=== PATIENT | male | born 1980 | race Caucasian/White ===

== ENCOUNTER 2016-07-07 14:27 | Emergency (ER) | payer OTHER ==
[~2016-07-07] VITALS: Ht 170.2 cm; Wt 72.0 kg
[~2016-07-07 14:27] MED LIST: ATOR40TA16 PO; BUPR4MIS SL; FAMO20TA2 PO; FLUT1INH7 INH; GABA300C5 PO; INSU1INJ14 SQ; LEVO25TA4 PO; NOVOINJ SQ; PROT40TA PO; ZITHTAB PO
[2016-07-07 14:34] VITALS: BP 136/96; PULSE 109; RESP 14; TEMP 98.8; O2SAT 96
[2016-07-07] MEDS ORDERED: PENI250T59 PO (14:48)
[2016-07-07] MEDS ORDERED: PERI0.126 SWISH-SPIT (14:48)
--- NOTE | 2016-07-07 14:49 | PD ---
HPI Chief Complaint: Oral / Dental Pain or Problem Time Seen by Provider: 14:48 Travel History International Travel<30 days: No Contact w/Intl Traveler<30days: No Traveled to known affect area: No History of Present Illness HPI 36-year-old male presents to the emergency room for right upper dental pain since this morning. Patient has severe decay throughout his mouth and knows that he needs to go to the dentist but cannot afford it at this time. Denies fever, chills, nausea, vomiting. Denies drainage. Pain radiates up his right cheek. He took 600 mg ibuprofen without relief in symptoms. PFSH Past Medical History Hx Anticoagulant Therapy: No Asthma: Yes Autoimmune Disease: No Bipolar Disorder: Yes Anxiety: Yes Depression: Yes Heart Rhythm Problems: No Cancer: No Cardiovascular Problems: Yes (HTN, CHOL) High Cholesterol: Yes Chemotherapy: No Chest Pain: No Congestive Heart Failure: No COPD: Yes Cerebrovascular Accident: No Diabetes: Yes Patient Takes Glucophage: No Diminished Hearing: No Endocrine: Yes Gastrointestinal Disorders: Yes GERD: Yes Genitourinary: Yes (pain w/urination, blood in urine Feb 2015) Headaches: Yes Hiatal Hernia: No Hypertension: Yes Immune Disorder: No Implanted Vascular Access Dvce: No Musculoskeletal: Yes (DEGENERATIVE DISC DISEASE, CHRONIC BACK PAIN) Neurologic: Yes (NEUROPATHY) Psychiatric: Yes (PREVIOUS LOJA ACT ) Reproductive: No Respiratory: Yes Immunizations Current: Yes Migraines: Yes Pancreatitis: Yes Pneumonia: Yes Radiation Therapy: No Seizures: Yes Thyroid Disease: No Ulcer: No Past Surgical History Abdominal Surgery: Yes (lap ale January 2012) AICD: No Arteriovenous Shunt: No Cholecystectomy: Yes (2011) Hysterectomy: No Insulin Pump: No Joint Replacement: No Oral Surgery: Yes (WISDOM PULLED ) Pacemaker: No Other Surgery: Yes (gallbladder) Social History Alcohol Use: No Tobacco Use: Yes (5 cigs a day) Substance Use: Yes (states "smokes pot" 04/11/16) Allergies-Medications (Allergen,Severity, Reaction): Coded Allergies: Tramadol (Verified Adverse Reaction, Mild, Anxiety/panic, 07/07/16) PATIENT STATES HE WAS TOLD NOT TO TAKE DUE TO HIS SEIZURE DISORDER Reported Meds & Prescriptions Reported Meds & Active Scripts Active Penicillin Vk (Penicillin V Potassium) 250 Mg Tab 500 Mg PO Q8H 7 Days Peridex Liq (Chlorhexidine Gluconate (Mouth) Liq) 0.12% Soln 15 Ml SWISH-SPIT BID Reported Tresiba Flextouch Pen Inj (Insulin Degludec Inj) 300 unit/3 ML Pen 50 Units SQ HS Novolog Penfill Inj (Insulin Aspart) 300 Unit/3 Ml Pen 10 Units SQ TIDAC PRN Gabapentin 300 Mg Cap 300 Mg PO BID Review of Systems Except as stated in HPI: all other systems reviewed are Neg Physical Exam Narrative GENERAL: Well-nourished, well-developed male in no acute distress. Afebrile. Ambulatory. SKIN: Warm and dry. HEAD: Normocephalic. DENTAL: Severe decay throughout. Mild erythema of the gums. No drainage. No obvious abscess. No loose or chipped teeth. No malocclusion. No submental, submandibular, or buccal induration. Data Data Last Documented VS Vital Signs Date Time Temp Pulse Resp B/P Pulse Ox O2 Delivery O2 Flow Rate FiO2 07/07/16 14:42 16 07/07/16 14:34 98.8 109 136/96 96 MDM Medical Decision Making Medical Screen Exam Complete: Yes Emergency Medical Condition: Yes Medical Record Reviewed: Yes Differential Diagnosis Dental caries versus dentalgia versus dental abscess Narrative Course 36-year-old male presents to the emergency room for evaluation of right upper dental pain for the past several hours. Physical exam reveals severe decay throughout. Mild erythema of the gums. No drainage. No obvious abscess. No loose or chipped teeth. No malocclusion. No submental, submandibular, or buccal induration. Patient discharged with Peridex and penicillin and told to follow-up with dentist or return for worsening symptoms. Given emergency dental help handout. He understands and agrees with this plan. Diagnosis Primary Impression: Dental caries Referrals: Dentist Patient Instructions: Dental Caries (ED), General Instructions Additional Instructions: Rest and drink plenty of fluids. [place] your teeth twice daily. Penicillin as directed, until gone. Peridex as directed, until gone. Follow-up with a dentist. Return to the emergency room for worsening symptoms. Med/Other Pt SpecificInfo: Prescription(s) given Scripts Penicillin V Potassium (Penicillin Vk)250 Mg Qpk228 Mg PO Q8H 7 Days Ref 0 Prov:Yinka Al MD 07/07/16 Chlorhexidine Gluconate (Mouth) Liq (Peridex Liq)0.12% Soln15 Ml SWISH-SPIT BID #473 ML Ref 0 Prov:Yinka Al MD 07/07/16 Disposition: 01 DISCHARGE HOME Condition: Stable Candelaria Gilbert Jul 07, 2016 14:49
== END 2016-07-07 14:57 | disposition home or self-care (01) ==
LOC: PHEFT 14:27
DX: K02.9 Dental caries, unspecified (principal); I10 Essential (primary) hypertension; E78.00 Pure hypercholesterolemia, unspecified; E11.9 Type 2 diabetes mellitus without complications; Z72.0 Tobacco use; Z79.4 Long term (current) use of insulin; Z87.19 Personal history of other diseases of the digestive system; Z87.09 Personal history of other diseases of the respiratory system; Z86.59 Personal history of other mental and behavioral disorders; Z87.39 Personal history of other diseases of the musculoskeletal system and connective tissue; Z86.69 Personal history of other diseases of the nervous system and sense organs; Z87.01 Personal history of pneumonia (recurrent)
CPT/HCPCS: 99282

== ENCOUNTER 2016-07-10 10:11 | Emergency (ER) | payer OTHER ==
[~2016-07-10] VITALS: Ht 170.2 cm; Wt 71.0 kg
[~2016-07-10 10:11] MED LIST changes: -ATOR40TA16 PO; -BUPR4MIS SL; -FAMO20TA2 PO; -FLUT1INH7 INH; -LEVO25TA4 PO; +PENI250T59 PO; +PERI0.126 SWISH-SPIT; -PROT40TA PO; -ZITHTAB PO
[2016-07-10 10:14] VITALS: BP 126/90; PULSE 92; RESP 16; TEMP 98.8; O2SAT 97
[2016-07-10] MEDS ORDERED: TYLETAB34 PO (10:42)
--- NOTE | 2016-07-10 10:48 | PD ---
HPI Chief Complaint: Abdominal Pain Time Seen by Provider: 10:31 Travel History International Travel<30 days: No Contact w/Intl Traveler<30days: No Traveled to known affect area: No History of Present Illness HPI This patient complains of dental pain. He says that he's been drinking recently because of his dental pain but he in general is nonalcoholic or heavy drinker. He is a very frequent visitor to the ER complaining of abdominal complaints. He says that the alcohol flares up his pancreas. Denies fever. Symptoms severity is mild to moderate. PFSH Past Medical History Hx Anticoagulant Therapy: No Asthma: Yes Autoimmune Disease: No Bipolar Disorder: Yes Anxiety: Yes Depression: Yes Heart Rhythm Problems: No Cancer: No Cardiovascular Problems: Yes (HTN, CHOL) High Cholesterol: Yes Chemotherapy: No Chest Pain: No Congestive Heart Failure: No COPD: Yes Cerebrovascular Accident: No Diabetes: Yes Diminished Hearing: No Endocrine: Yes Gastrointestinal Disorders: Yes GERD: Yes Genitourinary: Yes (pain w/urination, blood in urine Feb 2015) Headaches: Yes Hiatal Hernia: No Hypertension: Yes Immune Disorder: No Implanted Vascular Access Dvce: No Musculoskeletal: Yes (DEGENERATIVE DISC DISEASE, CHRONIC BACK PAIN) Neurologic: Yes (NEUROPATHY) Psychiatric: Yes (PREVIOUS LOJA ACT ) Reproductive: No Respiratory: Yes Immunizations Current: Yes Migraines: Yes Pancreatitis: Yes Pneumonia: Yes Radiation Therapy: No Seizures: Yes Thyroid Disease: No Ulcer: No Past Surgical History Abdominal Surgery: Yes (lap ale January 2012) AICD: No Arteriovenous Shunt: No Cholecystectomy: Yes (2011) Hysterectomy: No Insulin Pump: No Joint Replacement: No Oral Surgery: Yes (WISDOM PULLED ) Pacemaker: No Other Surgery: Yes (gallbladder) Social History Alcohol Use: No Tobacco Use: Yes (5 cigs a day) Substance Use: Yes (states "smokes pot" 04/11/16) Allergies-Medications (Allergen,Severity, Reaction): Coded Allergies: Tramadol (Verified Adverse Reaction, Mild, Anxiety/panic, 07/10/16) PATIENT STATES HE WAS TOLD NOT TO TAKE DUE TO HIS SEIZURE DISORDER Reported Meds & Prescriptions Reported Meds & Active Scripts Active Penicillin Vk (Penicillin V Potassium) 250 Mg Tab 500 Mg PO Q8H 7 Days Peridex Liq (Chlorhexidine Gluconate (Mouth) Liq) 0.12% Soln 15 Ml SWISH-SPIT BID Reported Tresiba Flextouch Pen Inj (Insulin Degludec Inj) 300 unit/3 ML Pen 50 Units SQ HS Novolog Penfill Inj (Insulin Aspart) 300 Unit/3 Ml Pen 10 Units SQ TIDAC PRN Gabapentin 300 Mg Cap 300 Mg PO BID Review of Systems General / Constitutional: No: Fever HENT: No: Vertigo Cardiovascular: No: Chest Pain or Discomfort Physical Exam Narrative GASTROINTESTINAL: Abdomen soft, non-tender, nondistended. Positive bowel sounds. No hepato-splenomegaly, or palpable masses. No guarding. NECK: Symmetrical appearance, midline trachea. No mass or crepitus. Thyroid without enlargement, tenderness, or mass. Oral cavity: Poor dentition with several rotted out teeth Data Data Last Documented VS Vital Signs Date Time Temp Pulse Resp B/P Pulse Ox O2 Delivery O2 Flow Rate FiO2 07/10/16 10:28 93 07/10/16 10:14 98.8 16 126/90 97 MDM Medical Decision Making Medical Screen Exam Complete: Yes Emergency Medical Condition: Yes Medical Record Reviewed: Yes Differential Diagnosis Dental cavities, pancreatitis, malingering Narrative Course I have reviewed the patient's electronic medical record. Very frequent visitor to the ER. Last visit he left AMA. Was here 42 times in 2016 I wrote him a dozen Tylenol 3 with codeine. I warned about potential sedation. he needs to follow-up with primary care and dentist and stop his abusive behavior. Diagnosis Primary Impression: Dental caries Additional Impression: Abdominal pain Qualified Code: R10.33 - Periumbilical abdominal pain Additional Instructions: The patient was advised to follow up with their physician and return if they worsen. The patient was warned about potential sedation for the medications they will receive on prescription. Follow up with dentist Stop drinking alcohol Med/Other Pt SpecificInfo: Prescription(s) given Scripts Acetaminophen-Codeine (Tylenol-Codeine #3)300-30 mg Tab1 Tab PO Q6HR PRN (PAIN) #12 TAB Ref 0 Prov:Dom Jimenez MD 07/10/16 Disposition: 01 DISCHARGE HOME Condition: Stable Dom Jimenez MD Jul 10, 2016 10:48
== END 2016-07-10 11:20 | disposition home or self-care (01) ==
LOC: PHED 10:11
DX: K02.9 Dental caries, unspecified (principal); R10.33 Periumbilical pain; I10 Essential (primary) hypertension; J44.9 Chronic obstructive pulmonary disease, unspecified; Z72.0 Tobacco use; F12.90 Cannabis use, unspecified, uncomplicated
CPT/HCPCS: 99282

== ENCOUNTER 2016-07-15 11:51 | Emergency (ER) | payer OTHER ==
[~2016-07-15] VITALS: Ht 170.2 cm; Wt 71.9 kg
[~2016-07-15 11:51] MED LIST changes: +TYLETAB34 PO
[2016-07-15 12:01] VITALS: BP 129/97; PULSE 105; RESP 16; TEMP 97.7; O2SAT 99
== END 2016-07-15 12:50 | disposition left against medical advice (07) ==
LOC: PHED 11:51
DX: K85.90 Acute pancreatitis without necrosis or infection, unspecified (principal)
CPT/HCPCS: 99281

== ENCOUNTER 2016-09-21 19:34 | Emergency (ER) | payer OTHER | END 2016-09-21 20:39 | disposition left against medical advice (07) | LOC: PHED 19:34 | DX: M79.89 Other specified soft tissue disorders (principal); Z53.21 Procedure and treatment not carried out due to patient leaving prior to being seen by health care provider | CPT/HCPCS: 99281 ==

== ENCOUNTER 2016-10-03 14:32 | Emergency (ER) | payer OTHER ==
[~2016-10-03] VITALS: Ht 170.2 cm; Wt 67.3 kg
[2016-10-03 14:50] VITALS: BP 126/91; PULSE 107; RESP 20; TEMP 98.4; O2SAT 95
[2016-10-03] MEDS ORDERED: SUBO8MIS SL (15:06)
[2016-10-03] MEDS ORDERED: MECLIZINE HCL 25 MG TAB PO ONE (15:15)
[2016-10-03] MEDS ORDERED: SODIUM CHLOR 0.9% 1000 ML INJ 1,000 ML IV ONE (15:15)
[2016-10-03] MEDS ORDERED: INSULIN HUMAN REGULAR 1,000 UNITS/10 ML VIAL SQ ONE (15:15)
--- NOTE | 2016-10-03 15:26 | PD ---
HPI Chief Complaint: Dizziness Time Seen by Provider: 15:03 Travel History International Travel<30 days: No Contact w/Intl Traveler<30days: No Traveled to known affect area: No History of Present Illness HPI This 36-year-old male says he been feeling dizzy for the last 2 weeks. He says he feels dizzy all the time. I dizzy and he doesn't mean vertigo. He says he been having tinnitus for a long time. He has trouble hearing. He has a history of diabetes. He does say that he has not been feeling well the last couple weeks. He says that sometimes he forgets where he is. He feels that he has fallen due to his dizziness. He does have a history of diabetes which is poorly controlled. His sugar today is 345. He has had diabetes since 2011. PFSH Past Medical History Hx Anticoagulant Therapy: No Asthma: Yes Autoimmune Disease: No Bipolar Disorder: Yes Anxiety: Yes Depression: Yes Heart Rhythm Problems: No Cancer: No Cardiovascular Problems: Yes (HTN, CHOL) High Cholesterol: Yes Chemotherapy: No Chest Pain: No Congestive Heart Failure: No COPD: Yes Cerebrovascular Accident: No Diabetes: Yes Patient Takes Glucophage: No Diminished Hearing: No Endocrine: Yes Gastrointestinal Disorders: Yes GERD: Yes Genitourinary: Yes Headaches: Yes Hiatal Hernia: No Hypertension: Yes Immune Disorder: No Implanted Vascular Access Dvce: No Musculoskeletal: Yes (DEGENERATIVE DISC DISEASE, CHRONIC BACK PAIN) Neurologic: Yes (NEUROPATHY) Psychiatric: Yes (PREVIOUS LOJA ACT ) Reproductive: No Respiratory: Yes Immunizations Current: Yes Migraines: Yes Pancreatitis: Yes Pneumonia: Yes Radiation Therapy: No Seizures: Yes Thyroid Disease: No Ulcer: No Past Surgical History Abdominal Surgery: Yes AICD: No Arteriovenous Shunt: No Cholecystectomy: Yes (2011) Hysterectomy: No Insulin Pump: No Joint Replacement: No Oral Surgery: Yes (WISDOM PULLED ) Pacemaker: No Other Surgery: Yes (gallbladder) Social History Alcohol Use: No Tobacco Use: Yes (1PPD) Substance Use: Yes (states "smokes pot" 04/11/16, PREVIOUSLY OPIATES) Allergies-Medications (Allergen,Severity, Reaction): Coded Allergies: Tramadol (Verified Adverse Reaction, Mild, Anxiety/panic, 10/03/16) PATIENT STATES HE WAS TOLD NOT TO TAKE DUE TO HIS SEIZURE DISORDER Reported Meds & Prescriptions Reported Meds & Active Scripts Active Reported Suboxone Sublingual Film (Buprenorphine-Naloxone Sublingual Film) 8-2 Mg Film 1 Film SL DAILY Unique ID number required: Novolog Penfill Inj (Insulin Aspart) 300 Unit/3 Ml Pen 10 Units SQ TIDAC PRN Gabapentin 300 Mg Cap 300 Mg PO BID Review of Systems General / Constitutional: No: Fever, Chills Eyes: No: Diploplia HENT: Positive: Vertigo, No: Ear Discharge (tinnitus) Cardiovascular: No: Chest Pain or Discomfort, Palpitations Respiratory: No: Cough Gastrointestinal: No: Nausea, Vomiting Genitourinary: No: Urgency, Frequency Musculoskeletal: No: Myalgias Skin: No Rash, No Itching Neurologic: Positive: Dizziness, No: Weakness Endocrine: No: Heat Intolerance Hematologic/Lymphatic: No: Easy Bruising Physical Exam Narrative GENERAL: Well-developed male SKIN: Focused skin assessment warm/dry. HEAD: Atraumatic. Normocephalic. EYES: Pupils equal and round. No scleral icterus. No injection or drainage. ENT: No nasal bleeding or discharge. Mucous membranes pink and moist. TMs are dull bilaterally. There is a small speck of blood on the left tympanic membrane NECK: Trachea midline. No JVD. CARDIOVASCULAR: Regular rate and rhythm. No murmur appreciated. RESPIRATORY: No accessory muscle use. Clear to auscultation. Breath sounds equal bilaterally. GASTROINTESTINAL: Abdomen soft, non-tender, nondistended. Hepatic and splenic margins not palpable. MUSCULOSKELETAL: No obvious deformities. No clubbing. No cyanosis. No edema. NEUROLOGICAL: Awake and alert. No obvious cranial nerve deficits. Motor grossly within normal limits. Normal speech. PSYCHIATRIC: Appropriate mood and affect; insight and judgment normal. Data Data Last Documented VS Vital Signs Date Time Temp Pulse Resp B/P Pulse Ox O2 Delivery O2 Flow Rate FiO2 10/03/16 15:32 94 20 118/77 95 10/03/16 14:50 98.4 Orders Complete Blood Count With Diff (10/03/16 15:14) Basic Metabolic Panel (Bmp) (10/03/16 15:14) Ct Brain W/O Iv Contrast(Rout) (10/03/16 15:14) Sodium Chlor 0.9% 1000 Ml Inj (Ns 1000 M (10/03/16 15:15) Insulin Human Regular Inj (Novolin R Inj (10/03/16 15:15) Meclizine (Antivert) (10/03/16 15:15) Labs Laboratory Tests Test 10/03/16 15:15 White Blood Count 11.4 TH/MM3 Red Blood Count 5.08 MIL/MM3 Hemoglobin 15.7 GM/DL Hematocrit 44.8 % Mean Corpuscular Volume 88.1 FL Mean Corpuscular Hemoglobin 30.9 PG Mean Corpuscular Hemoglobin 35.1 % Concent Red Cell Distribution Width 11.9 % Platelet Count 197 TH/MM3 Mean Platelet Volume 8.4 FL Neutrophils (%) (Auto) 64.6 % Lymphocytes (%) (Auto) 23.3 % Monocytes (%) (Auto) 5.5 % Eosinophils (%) (Auto) 4.3 % Basophils (%) (Auto) 2.3 % Neutrophils # (Auto) 7.3 TH/MM3 Lymphocytes # (Auto) 2.7 TH/MM3 Monocytes # (Auto) 0.6 TH/MM3 Eosinophils # (Auto) 0.5 TH/MM3 Basophils # (Auto) 0.3 TH/MM3 CBC Comment DIFF FINAL Differential Comment Sodium Level 135 MEQ/L Potassium Level 3.4 MEQ/L Chloride Level 96 MEQ/L Carbon Dioxide Level 29.5 MEQ/L Anion Gap 10 MEQ/L Blood Urea Nitrogen 7 MG/DL Creatinine 0.80 MG/DL Estimat Glomerular Filtration 110 ML/MIN Rate Random Glucose 322 MG/DL Calcium Level 8.7 MG/DL MDM Medical Decision Making Medical Screen Exam Complete: Yes Emergency Medical Condition: Yes Medical Record Reviewed: Yes Differential Diagnosis Differential includes labyrinthitis, Mnire's disease, CVA Narrative Course The CT scan was done because of his complaints of feeling out of it at times. His blood sugar is elevated at 3:30. He is given IV fluids and insulin. He is stable for discharge and will be released with prescription for Antivert. CT scan was done and shows extensive sinus disease. Certainly be contributing to his vertigo and will be treated with amoxicillin Diagnosis Primary Impression: Vertigo Additional Impression: Sinusitis Qualified Code: J32.2 - Ethmoid sinusitis, unspecified chronicity Scripts Amoxicillin 500 Mg [id number] Mg PO TID 7 Days Ref 0 Prov:Raghav Crowe MD 10/03/16 Meclizine 25 Mg Tab25 Mg PO TID PRN (VERTIGO) #30 TAB Ref 0 Prov:Raghav Crowe MD 10/03/16 Disposition: 01 DISCHARGE HOME Condition: Stable Raghav Crowe MD Oct 03, 2016 15:26
[2016-10-03 15:28] LABS: AUTOMATED NEUTROPHIL # 7.3 TH/MM3 (1.8-7.7); BASOPHIL # 0.3 TH/MM3 (0-0.2); BASOPHIL % 2.3 % (0.0-2.0); EOSINOPHIL # 0.5 TH/MM3 (0-0.4); EOSINOPHIL % 4.3 % (0.0-4.0); HEMATOCRIT 44.8 % (39.0-51.0); HEMO FLAGS DIFF FINAL; LYMPH % 23.3 % (9.0-44.0); LYMPHOCYTE # 2.7 TH/MM3 (1.0-4.8); MEAN CELL VOLUME 88.1 FL (80.0-100.0); MEAN CORPUSCULAR HEMOGLOBIN 30.9 PG (27.0-34.0); MEAN CORPUSCULAR HGB CONC 35.1 % (32.0-36.0); MONO % 5.5 % (0.0-8.0); NEUT % 64.6 % (16.0-70.0); PLATELET COUNT 197 TH/MM3 (150-450); RED BLOOD COUNT 5.08 MIL/MM3 (4.50-5.90); RED CELL DISTRIBUTION WIDTH 11.9 % (11.6-17.2); WHITE BLOOD COUNT 11.4 TH/MM3 (4.0-11.0)
[2016-10-03 15:32] VITALS: BP 118/77; PULSE 94; RESP 20; O2SAT 95
[2016-10-03 15:39] LABS: POTASSIUM 3.4 MEQ/L (3.5-5.1)
[2016-10-03 15:42] LABS: BICARBONATE 29.5 MEQ/L (21.0-32.0)
[2016-10-03] MEDS ORDERED: MECL-62 PO (16:08)
--- NOTE | 2016-10-03 16:08 | RADHPO ---
EXAM DATE/TIME: 10/03/2016 15:41 [facility] COMPARISON: No previous studies available for comparison. INDICATIONS : Dizziness. RADIATION DOSE: 65.04 CTDIvol (mGy) MEDICAL HISTORY : Seizures. Diabetes mellitus type 2. Chronic obstructive pulmonary disease. Hype rtension. SURGICAL HISTORY : None. ENCOUNTER: Initial ACUITY: 2 weeks PAIN SCALE: 0/10 LOCATION: Cranial TECHNIQUE: Multiple contiguous axial images were obtained of the head. Using automated exposure control and adjustment of the mA and/or kV according to patient size, radiation dose was kept as low as reasonably achievable to obtain optimal diagnostic quality images. FINDINGS: Non-contrast head CT demonstrates the maxillary sinuses are quite hypoplastic with extensive mucoperi osteal thickening. There is extensive sinus disease in the ethmoid or air cells. Intracranial exam is normal. There is no evidence of hemorrhage or edema. No mass or mass effect. Globes normal in shape. CONCLUSION: Extensive sinus disease and hypoplastic sinuses. Intracranial exam is normal. Air fluid level left frontal sinus. Marcio Grijalva MD on October 03, 2016 at 16:00 Board Certified Radiologist. This report was verified electronically.
[2016-10-03] MEDS ORDERED: AMOX500T PO (16:13)
== END 2016-10-03 17:01 | disposition home or self-care (01) ==
LOC: PHED 14:32
DX: R42 Dizziness and giddiness (principal); E78.00 Pure hypercholesterolemia, unspecified; I10 Essential (primary) hypertension; F41.8 Other specified anxiety disorders; J44.9 Chronic obstructive pulmonary disease, unspecified; E11.9 Type 2 diabetes mellitus without complications; F17.210 Nicotine dependence, cigarettes, uncomplicated; Z79.4 Long term (current) use of insulin; J32.9 Chronic sinusitis, unspecified
CPT/HCPCS: 70450; 80048; 85025; 96372; 99284; J1815; J7030

== ENCOUNTER 2016-11-28 12:30 | Emergency (ER) | payer OTHER ==
[~2016-11-28] VITALS: Ht 170.2 cm; Wt 71.0 kg
[~2016-11-28 12:30] MED LIST changes: +AMOX500T PO; -INSU1INJ14 SQ; +MECL-62 PO; -PENI250T59 PO; -PERI0.126 SWISH-SPIT; +SUBO8MIS SL; -TYLETAB34 PO
[2016-11-28 12:36] VITALS: BP 146/93; PULSE 101; RESP 16; TEMP 98.2; O2SAT 99
[2016-11-28] MEDS ORDERED: NOVOINJ2 SQ (12:39)
--- NOTE | 2016-11-28 13:10 | PD ---
HPI Chief Complaint: Pain: Acute or Chronic Time Seen by Provider: 13:01 Travel History International Travel<30 days: No Contact w/Intl Traveler<30days: No Traveled to known affect area: No History of Present Illness HPI 36-year-old male with history of diabetes, presents to the ER today for left hand pain that started several days ago on its own. He does not remember any injuries. He states it hurts more in the mornings, works at night. He denies any fevers or any other issues. Pain is currently a 7 out of 10. He denies any fevers, neck pains, or any other issues. Pain is most pronounced around the first and second metacarpal area. Patient denies any IV drug use. Patient states he has been using ibuprofen for pain. Modifying Factors: None Associated Signs & Symptoms: Left hand pain Risk Factors: None PFSH Past Medical History Hx Anticoagulant Therapy: No Asthma: Yes Autoimmune Disease: No Bipolar Disorder: Yes Anxiety: Yes Depression: Yes Heart Rhythm Problems: No Cancer: No Cardiovascular Problems: Yes (HTN, CHOL) High Cholesterol: Yes Chemotherapy: No Chest Pain: No Congestive Heart Failure: No COPD: Yes Cerebrovascular Accident: No Diabetes: Yes Patient Takes Glucophage: No Diminished Hearing: No Endocrine: Yes Gastrointestinal Disorders: Yes GERD: Yes Genitourinary: Yes Headaches: Yes Hiatal Hernia: No Hypertension: Yes Immune Disorder: No Implanted Vascular Access Dvce: No Musculoskeletal: Yes (DEGENERATIVE DISC DISEASE, CHRONIC BACK PAIN) Neurologic: Yes (NEUROPATHY) Psychiatric: Yes (PREVIOUS LOJA ACT ) Reproductive: No Respiratory: Yes Immunizations Current: Yes Migraines: Yes Pancreatitis: Yes Pneumonia: Yes Radiation Therapy: No Seizures: Yes Thyroid Disease: No Ulcer: No Past Surgical History Abdominal Surgery: Yes AICD: No Arteriovenous Shunt: No Cholecystectomy: Yes (2011) Hysterectomy: No Insulin Pump: No Joint Replacement: No Oral Surgery: Yes (WISDOM PULLED ) Pacemaker: No Other Surgery: Yes (gallbladder) Social History Alcohol Use: No Tobacco Use: Yes (2 PPD) Substance Use: Yes (states "smokes pot" 04/11/16, PREVIOUSLY OPIATES) Allergies-Medications (Allergen,Severity, Reaction): Coded Allergies: Tramadol (Verified Adverse Reaction, Mild, Anxiety/panic, 11/28/16) PATIENT STATES HE WAS TOLD NOT TO TAKE DUE TO HIS SEIZURE DISORDER Reported Meds & Prescriptions Reported Meds & Active Scripts Active Motrin Ib (Ibuprofen) 200 Mg Tablet 600 Mg PO Q6HR PRN Reported Novolog Mix 70-30 FlexPen Inj (Insulin Aspart Protam-Asp 70-30 Inj) 300 Unit/3 Ml Pen 1 Units SQ Review of Systems Except as stated in HPI: all other systems reviewed are Neg Physical Exam Narrative GENERAL: Well-developed middle age white male patient currently in mild distress. Awake and oriented 3. SKIN: Focused skin assessment warm/dry. HEAD: Atraumatic. Normocephalic. EYES: Pupils equal and round. No scleral icterus. No injection or drainage. ENT: No nasal bleeding or discharge. Mucous membranes pink and moist. NECK: Trachea midline. No JVD. CARDIOVASCULAR: Regular rate and rhythm. No murmur appreciated. RESPIRATORY: No accessory muscle use. Clear to auscultation. Breath sounds equal bilaterally. GASTROINTESTINAL: Abdomen soft, non-tender, nondistended. Hepatic and splenic margins not palpable. EXTREMITIES: No clubbing, cyanosis, or edema. No joint tenderness, effusion, or edema noted. There is notable tenderness on palpation of the left first and second metacarpal area below the wrist without obvious deformities, point tenderness, erythema. Neurovascularly intact. MUSCULOSKELETAL: No obvious deformities. No clubbing. No cyanosis. No edema. NEUROLOGICAL: Awake and alert. No obvious cranial nerve deficits. Motor grossly within normal limits. Normal speech. PSYCHIATRIC: Appropriate mood and affect; insight and judgment normal. Data Data Last Documented VS Vital Signs Date Time Temp Pulse Resp B/P Pulse Ox O2 Delivery O2 Flow Rate FiO2 11/28/16 12:36 98.2 101 16 146/93 99 Orders Hand, Complete ([id number]) (11/28/16 13:01) [facility] Medical Decision Making Medical Screen Exam Complete: Yes Emergency Medical Condition: Yes Medical Record Reviewed: Yes Differential Diagnosis Left hand paincarpal tunnel syndrome versus arthritis versus strain Narrative Course X-ray did not show any signs of acute processes. At this point, I do not see any signs of infection as well. My plan at this point would be to release him with symptomatic relief or pain and have him follow-up with primary care physician. He should return for any worsening in symptoms or new issues as needed. The plan has been discussed with him and he is agreeable. Diagnosis Primary Impression: Left hand pain Med/Other Pt SpecificInfo: Prescription(s) given Scripts Ibuprofen (Motrin Ib)200 Mg [id number] Mg PO Q6HR PRN (PAIN SCALE 1 TO 10) #28 Prov:Marely Craft MD 11/28/16 Disposition: 01 DISCHARGE HOME Condition: Stable Marely Craft MD Nov 28, 2016 13:10
--- NOTE | 2016-11-28 13:50 | RADHPO ---
EXAM DATE/TIME: 11/28/2016 13:15 [facility] COMPARISON: HAND LEFT COMPLETE ([id number]), March 24, 2016, 23:09. INDICATIONS : Left hand pain primarily in the 1st & 2nd metacarpal area with no known injury. MEDICAL HISTORY : Hypercholesterolemia. Pancreatitis. Gastroesophageal reflux disease. Hypertension. Asthma. COPD. Diabetic. Chronic back pain. SURGICAL HISTORY : Cholecystectomy. ENCOUNTER: Initial ACUITY: 4 - 6 days PAIN SCORE: 7/10 LOCATION: Left hand FINDINGS: Three view examination of the left hand demonstrates no soft tissue swelling, dislocation, or fractur e. The carpal bones appear intact. The interphalangeal and metacarpophalangeal joints are intact. Bony mineralization is normal. CONCLUSION: No evidence of recent bony injury. Sacha Sims MD on November 28, 2016 at 13:48 Board Certified Radiologist. This report was verified electronically.
[2016-11-28] MEDS ORDERED: IBUP-1129 PO (14:05)
== END 2016-11-28 14:24 | disposition home or self-care (01) ==
LOC: PHED 12:30
DX: M79.642 Pain in left hand (principal); I10 Essential (primary) hypertension; E11.9 Type 2 diabetes mellitus without complications; F17.210 Nicotine dependence, cigarettes, uncomplicated; F12.90 Cannabis use, unspecified, uncomplicated; Z79.4 Long term (current) use of insulin
CPT/HCPCS: 73130; 99283

== ENCOUNTER 2016-12-22 04:44 | Emergency (ER) | payer OTHER ==
[~2016-12-22] VITALS: Ht 170.2 cm; Wt 68.0 kg
[~2016-12-22 04:44] MED LIST changes: -AMOX500T PO; -GABA300C5 PO; +IBUP-1129 PO; -MECL-62 PO; -NOVOINJ SQ; +NOVOINJ2 SQ; -SUBO8MIS SL
[2016-12-22 04:58] VITALS: BP 154/79; PULSE 95; RESP 20; TEMP 98; O2SAT 100
[2016-12-22] MEDS ORDERED: SODIUM CHLORIDE 0.9% FLUSH 10 ML FLUSH IV FLUSH PRN (05:00)
[2016-12-22] MEDS ORDERED: KETOROLAC TROMETHAMINE 60 MG/2 ML (IM) VIAL IVP ONE (05:00)
[2016-12-22] MEDS ORDERED: ORPHENADRINE INJ 60 MG/2 ML AMP IM ONE (05:00)
--- NOTE | 2016-12-22 05:05 | PD ---
HPI Chief Complaint: Musculoskeletal Complaint Time Seen by Provider: 04:52 Travel History International Travel<30 days: No Contact w/Intl Traveler<30days: No Traveled to known affect area: No History of Present Illness HPI The patient is a 36-year-old female that complains of left flank pain and back pain for 10 days. He was seen by his primary care physician for this and also seemed up for the [facility] for this. He was given Moblic, prednisone, methocarbamol and Lortab 10. He comes in here tonight because of the pain. He does have a history of polysubstance abuse to include usually marijuana, opiates and in 2014 cocaine. He is a very frequent visitor to this emergency department. PFSH Past Medical History Hx Anticoagulant Therapy: No Asthma: Yes Autoimmune Disease: No Bipolar Disorder: Yes Anxiety: Yes Depression: Yes Heart Rhythm Problems: No Cancer: No Cardiovascular Problems: Yes (HTN, CHOL) High Cholesterol: Yes Chemotherapy: No Chest Pain: No Congestive Heart Failure: No COPD: Yes Cerebrovascular Accident: No Diabetes: Yes Diminished Hearing: No Endocrine: Yes Gastrointestinal Disorders: Yes GERD: Yes Genitourinary: Yes Headaches: Yes Hiatal Hernia: No Hypertension: Yes Immune Disorder: No Implanted Vascular Access Dvce: No Musculoskeletal: Yes (DEGENERATIVE DISC DISEASE, CHRONIC BACK PAIN) Neurologic: Yes (NEUROPATHY) Psychiatric: Yes (PREVIOUS LOJA ACT ) Reproductive: No Respiratory: Yes Immunizations Current: Yes Migraines: Yes Pancreatitis: Yes Pneumonia: Yes Radiation Therapy: No Seizures: Yes Thyroid Disease: No Ulcer: No Past Surgical History Abdominal Surgery: Yes AICD: No Arteriovenous Shunt: No Cholecystectomy: Yes (2011) Hysterectomy: No Insulin Pump: No Joint Replacement: No Oral Surgery: Yes (WISDOM PULLED ) Pacemaker: No Other Surgery: Yes (gallbladder) Social History Alcohol Use: No Tobacco Use: Yes (06/24 PPD) Substance Use: Yes (states "smokes pot" 04/11/16, PREVIOUSLY OPIATES) Allergies-Medications (Allergen,Severity, Reaction): Coded Allergies: Tramadol (Verified Adverse Reaction, Mild, Anxiety/panic, 12/22/16) PATIENT STATES HE WAS TOLD NOT TO TAKE DUE TO HIS SEIZURE DISORDER Reported Meds & Prescriptions Reported Meds & Active Scripts Active Motrin Ib (Ibuprofen) 200 Mg Tablet 600 Mg PO Q6HR PRN Reported Prednisone 5 Mg Tab 5 Mg PO TID Hydrocodone-Acetaminophen 10-325 mg Tab 1 Tab PO Q6H PRN Mobic (Meloxicam) 7.5 Mg Tab 7.5 Mg PO DAILY Novolog Mix 70-30 FlexPen Inj (Insulin Aspart Protam-Asp 70-30 Inj) 300 Unit/3 Ml Pen 1 Units SQ Review of Systems Except as stated in HPI: all other systems reviewed are Neg Physical Exam Narrative The patient is alert, oriented 3 crushed up in a ball and does not want to move. His vital signs Data Data Last Documented VS Vital Signs Date Time Temp Pulse Resp B/P Pulse Ox O2 Delivery O2 Flow Rate FiO2 12/22/16 05:46 79 20 159/103 100 12/22/16 04:58 98.0 Orders Complete Blood Count With Diff (12/22/16 05:00) Comprehensive Metabolic Panel (12/22/16 05:00) Lipase (12/22/16 05:00) Urinalysis - C+S If Indicated (12/22/16 05:00) Iv Access Insert/Monitor (12/22/16 05:00) Ecg Monitoring (12/22/16 05:00) Oximetry (12/22/16 05:00) Sodium Chloride 0.9% Flush (Ns Flush) (12/22/16 05:00) Ketorolac Inj (Toradol Inj) (12/22/16 05:00) Orphenadrine Inj (Norflex Inj) (12/22/16 05:00) Ondansetron Inj (Zofran Inj) (12/22/16 06:30) Hydromorphone Pf Inj (Dilaudid Pf Inj) (12/22/16 06:30) Labs Laboratory Tests Test 12/22/16 05:32 White Blood Count 11.0 TH/MM3 Red Blood Count 5.03 MIL/MM3 Hemoglobin 15.2 GM/DL Hematocrit 44.8 % Mean Corpuscular Volume 89.1 FL Mean Corpuscular Hemoglobin 30.2 PG Mean Corpuscular Hemoglobin 33.9 % Concent Red Cell Distribution Width 12.3 % Platelet Count 78 TH/MM3 Mean Platelet Volume 8.8 FL Neutrophils (%) (Auto) 65.5 % Lymphocytes (%) (Auto) 28.2 % Monocytes (%) (Auto) 3.4 % Eosinophils (%) (Auto) 0.6 % Basophils (%) (Auto) 2.3 % Neutrophils # (Auto) 7.1 TH/MM3 Lymphocytes # (Auto) 3.1 TH/MM3 Monocytes # (Auto) 0.4 TH/MM3 Eosinophils # (Auto) 0.1 TH/MM3 Basophils # (Auto) 0.3 TH/MM3 CBC Comment AUTO DIFF Differential Comment AUTO DIFF CONFIRMED Platelet Estimate LOW Platelet Morphology Comment NORMAL Sodium Level 137 MEQ/L Potassium Level 5.1 MEQ/L Chloride Level 106 MEQ/L Carbon Dioxide Level 23.5 MEQ/L Anion Gap 8 MEQ/L Blood Urea Nitrogen 16 MG/DL Creatinine 0.68 MG/DL Estimat Glomerular Filtration 133 ML/MIN Rate Random Glucose 285 MG/DL Calcium Level 9.0 MG/DL Total Bilirubin 0.4 MG/DL Aspartate Amino Transf 23 U/L (AST/SGOT) Alanine Aminotransferase 43 U/L (ALT/SGPT) Alkaline Phosphatase 103 U/L Total Protein 6.9 GM/DL Albumin 3.7 GM/DL Lipase 65 U/L [facility] Medical Decision Making Medical Screen Exam Complete: Yes Emergency Medical Condition: Yes Medical Record Reviewed: Yes Interpretation(s) The CBC is normal. The complete metabolic profile shows a glucose of 285 but is otherwise unremarkable. The lipase is normal. The urine shows 1000 or greater glucose, trace ketones but is otherwise normal and culture is not indicated. Differential Diagnosis Chronic back pain with acute exacerbation, malingering to obtain pain medications, muscle spasm, electrolyte disorder, dehydration Narrative Course The patient refused the muscle relaxant because he did not want the IM shot. His blood sugar is likely elevated because of the prednisone he is taking. The patient does have a history of illicit drug abuse, chronic pain disorders and drug induced mood disorder. He was concerned about his kidney function and we did check this, this appears normal. He has been here multiple times manifesting the same rolled up position in bed. Diagnosis Primary Impression: Chronic pain disorder Additional Instructions: Follow-up with your primary care physician this week or early next week. Drink plenty of liquids so that you do not get dehydrated with your medications. Med/Other Pt SpecificInfo: No Change to Meds Disposition: 01 DISCHARGE HOME Condition: Stable Pop Hunter MD Dec 22, 2016 05:05
[2016-12-22] MEDS ORDERED: PRED5TAB PO (05:08)
[2016-12-22] MEDS ORDERED: HYDR-3583 PO (05:08)
[2016-12-22] MEDS ORDERED: MOBI7.5T PO (05:08)
[2016-12-22 05:40] LABS: AUTOMATED NEUTROPHIL # 7.1 TH/MM3 (1.8-7.7); BASOPHIL # 0.3 TH/MM3 (0-0.2); BASOPHIL % 2.3 % (0.0-2.0); EOSINOPHIL # 0.1 TH/MM3 (0-0.4); EOSINOPHIL % 0.6 % (0.0-4.0); HEMATOCRIT 44.8 % (39.0-51.0); LYMPH % 28.2 % (9.0-44.0); LYMPHOCYTE # 3.1 TH/MM3 (1.0-4.8); MEAN CELL VOLUME 89.1 FL (80.0-100.0); MEAN CORPUSCULAR HEMOGLOBIN 30.2 PG (27.0-34.0); MEAN CORPUSCULAR HGB CONC 33.9 % (32.0-36.0); MONO % 3.4 % (0.0-8.0); NEUT % 65.5 % (16.0-70.0); PLATELET COUNT 78 TH/MM3 (150-450); RED BLOOD COUNT 5.03 MIL/MM3 (4.50-5.90); RED CELL DISTRIBUTION WIDTH 12.3 % (11.6-17.2)
[2016-12-22 05:43] LABS: HEMO FLAGS AUTO DIFF
[2016-12-22 05:46] VITALS: BP 159/103; PULSE 79; RESP 20; O2SAT 100
[2016-12-22 05:49] LABS: CHLORIDE 106 MEQ/L (98-107); POTASSIUM 5.1 MEQ/L (3.5-5.1); SODIUM (NA) 137 MEQ/L (136-145)
[2016-12-22 05:53] LABS: ANION GAP 8 MEQ/L (5-15); BICARBONATE 23.5 MEQ/L (21.0-32.0); BLOOD UREA NITROGEN 16 MG/DL (7-18)
[2016-12-22 05:56] LABS: ALT (GPT) 43 U/L (12-78); AST (GOT) 23 U/L (15-37); GLOMERULAR FILTRATION RATE 133 ML/MIN (>89)
[2016-12-22 05:57] LABS: TOTAL BILIRUBIN ADULT 0.4 MG/DL (0.2-1.0)
[2016-12-22 05:59] LABS: ALKALINE PHOSPHATASE 103 U/L (45-117)
[2016-12-22 06:04] LABS: PLATELET ESTIMATE SMEAR LOW (NORMAL); PLATELET MORPHOLOGY NORMAL (NORMAL); SCAN/DIFF AUTO DIFF CONFIRMED
[2016-12-22] MEDS ORDERED: ONDANSETRON HCL 4 MG/2 ML VIAL IV ONE (06:30)
[2016-12-22] MEDS ORDERED: HYDROmorphone HCL PF 1 MG/ML VIAL IVP ONE (06:30)
[2016-12-22 06:33] LABS: BLOOD, URINE NEG (NEG); KETONE, URINE TRACE mg/dL (NEG); NITRITE,URINE NEG (NEG)
[2016-12-22 06:35] LABS: GLUCOSE,URINE 1000 OR GREATER mg/dL (NEG); METHOD OF COLLECTION CLEAN CATCH; URINE COLOR YELLOW (YELLW/STRAW)
[2016-12-22 06:37] LABS: COMMENT (UR) CULT NOT INDICATED; CULTURE IF INDICATED CULT NOT INDICATED; SQUAMOUS EPITHELIAL CELL URINE 0-5 /hpf (0-5)
[2016-12-22 06:39] VITALS: BP 122/66; PULSE 82; RESP 20; O2SAT 95
== END 2016-12-22 07:25 | disposition home or self-care (01) ==
LOC: PHED 04:44
DX: G89.29 Other chronic pain (principal); R10.9 Unspecified abdominal pain; M54.9 Dorsalgia, unspecified; E11.9 Type 2 diabetes mellitus without complications; I10 Essential (primary) hypertension; E78.00 Pure hypercholesterolemia, unspecified; F17.200 Nicotine dependence, unspecified, uncomplicated; Z79.4 Long term (current) use of insulin; Z87.09 Personal history of other diseases of the respiratory system; Z87.19 Personal history of other diseases of the digestive system; Z87.448 Personal history of other diseases of urinary system; Z86.59 Personal history of other mental and behavioral disorders; Z86.79 Personal history of other diseases of the circulatory system; Z87.39 Personal history of other diseases of the musculoskeletal system and connective tissue; Z86.69 Personal history of other diseases of the nervous system and sense organs
CPT/HCPCS: 80053; 81001; 83690; 85025; 96374; 96375; 99284; J1170; J1885; J2405

== ENCOUNTER 2016-12-25 21:06 | Emergency (ER) | payer OTHER ==
[~2016-12-25] VITALS: Ht 170.2 cm; Wt 70.0 kg
[~2016-12-25 21:06] MED LIST changes: +HYDR-3583 PO; +MOBI7.5T PO; +PRED5TAB PO
[2016-12-25 21:12] VITALS: BP 159/83; PULSE 104; RESP 16; TEMP 98.2; O2SAT 96
[2016-12-25 21:43] VITALS: BP 132/95; PULSE 99; RESP 17; O2SAT 96
[2016-12-25] MEDS ORDERED: ALEV220T14 PO (21:55)
[2016-12-25] MEDS ORDERED: KETOROLAC TROMETHAMINE 30 MG/ML (IVP) VIAL IV PUSH ONE (22:00)
[2016-12-25] MEDS ORDERED: SODIUM CHLOR 0.9% 1000 ML INJ 1,000 ML IV ONE ×2 (22:00→23:15)
[2016-12-25 22:29] LABS: BLOOD, URINE NEG (NEG); KETONE, URINE NEG (NEG); NITRITE,URINE NEG (NEG); PH, URINE 5.5 (5.0-8.5)
--- NOTE | 2016-12-25 22:29 | PD ---
HPI Chief Complaint: Pain: Acute or Chronic Time Seen by Provider: 21:44 Travel History International Travel<30 days: No Contact w/Intl Traveler<30days: No Traveled to known affect area: No History of Present Illness HPI 36-year-old male with chronic pain syndrome and diabetes presents to the emergency department by private transportation for ongoing low back pain with referred pain to the lower extremities. No report of bladder or bowel dysfunction or saddle anesthesia. Patient has had worsening symptoms 2 weeks after a bending type injury. Patient was seen by his primary care provider and a plain film was ordered. Patient does not know the results of this test. Patient states that he was very upset that he did not have a CT or an MRI so left a phone message on the doctor's office phone that was very rude and today when he went to see his primary care provider the office discontinued him as an active patient in that office. Patient states that prior to this he had been seen by his primary care provider approximately 3 weeks ago; no medications were adjusted and was not having back pain at the time. Patient is diabetic. Patient reportedly has been seen in the past 2 weeks at urgent care/primary care and at [facility] for same complaint. Patient more recently has been put on prednisone, Mobic, Robaxin, and Lortab reportedly without relief. Patient reports that because he does not have a primary care provider, he has return to the emergency department after being seen here 12/22/16 for same complaint, in order to be assessed to see if he needs to have CT or MRI imaging. Patient denies substance use other than marijuana; prior history of opiate abuse. Patient does not report any fever or chills. Denies any IV drug use. Patient rates pain as 5/10 in intensity. Patient denies any new numbness , tingling, or weakness to the lower extremities. Patient drove himself to the emergency department. Patient uses a cane at all times to assist with ambulation. [facility] Past Medical History Narrative Medical Diabetes hypertension pancreatitis asthma chronic pain syndrome back pain prior substance use; cholecystectomy dental extraction; tobacco use marijuana use; nursing notes reviewed Hx Anticoagulant Therapy: No Asthma: Yes Autoimmune Disease: No Bipolar Disorder: Yes Anxiety: Yes Depression: Yes Heart Rhythm Problems: No Cancer: No Cardiovascular Problems: Yes (HTN, CHOL) High Cholesterol: Yes Chemotherapy: No Chest Pain: No Congestive Heart Failure: No COPD: Yes Cerebrovascular Accident: No Diabetes: Yes Patient Takes Glucophage: No Diminished Hearing: No Endocrine: Yes Gastrointestinal Disorders: Yes GERD: Yes Genitourinary: Yes Headaches: Yes Hiatal Hernia: No Hypertension: Yes Immune Disorder: No Implanted Vascular Access Dvce: No Musculoskeletal: Yes (DEGENERATIVE DISC DISEASE, CHRONIC BACK PAIN) Neurologic: Yes (NEUROPATHY) Psychiatric: Yes Reproductive: No Respiratory: Yes Immunizations Current: Yes Migraines: Yes Pancreatitis: Yes Pneumonia: Yes Radiation Therapy: No Seizures: Yes Thyroid Disease: No Ulcer: No Tetanus Vaccination: < 5 Years Influenza Vaccination: Yes Past Surgical History Abdominal Surgery: Yes AICD: No Arteriovenous Shunt: No Cholecystectomy: Yes (2011) Hysterectomy: No Insulin Pump: No Joint Replacement: No Oral Surgery: Yes (WISDOM PULLED ) Pacemaker: No Other Surgery: Yes Social History Alcohol Use: No Tobacco Use: Yes (1 PPD) Substance Use: Yes (SMOKES MARIJUANA OCCASSIONAL) Allergies-Medications (Allergen,Severity, Reaction): Coded Allergies: Tramadol (Verified Adverse Reaction, Mild, Anxiety/panic, 12/25/16) PATIENT STATES HE WAS TOLD NOT TO TAKE DUE TO HIS SEIZURE DISORDER Reported Meds & Prescriptions Reported Meds & Active Scripts Active Reported Aleve Arthritis (Naproxen Sodium) 220 Mg Tab 220 Mg PO BID Novolog Mix 70-30 FlexPen Inj (Insulin Aspart Protam-Asp 70-30 Inj) 300 Unit/3 Ml Pen 1 Units SQ Review of Systems Except as stated in HPI: all other systems reviewed are Neg General / Constitutional: No: Fever, Chills HENT: No: Congestion Cardiovascular: No: Chest Pain or Discomfort Gastrointestinal: No: Abdominal Pain Genitourinary: No: Decreased Urinary Output, Hesitancy, Dribbling, Incontinence Musculoskeletal: Positive: Myalgias, Arthralgias, Pain (lumbar), No: Weakness , Cramping, Edema Skin: No Rash Neurologic: Positive: Paresthesia (intermittent lower extremities), No: Weakness, Dizziness, Syncope, Focal Abnormalities, Coordination Problem, Incontinence Psychiatric: No: Anxiety Hematologic/Lymphatic: No: Lymph Node Enlargement Physical Exam Narrative GENERAL: Well developed well nourished male in no acute distress SKIN: Warm and dry. HEAD: Atraumatic. Normocephalic. EYES: Pupils equal and round. No scleral icterus. No injection or drainage. ENT: No nasal bleeding or discharge. Mucous membranes pink and moist. NECK: Trachea midline. No JVD. CARDIOVASCULAR: Regular rate and rhythm. RESPIRATORY: No accessory muscle use. Clear to auscultation. Breath sounds equal bilaterally. GASTROINTESTINAL: Abdomen soft, non-tender, nondistended. Hepatic and splenic margins not palpable. MUSCULOSKELETAL: Extremities without clubbing, cyanosis, or edema. No obvious deformities. DTR's 1=+ bilateral UE/LE; negative SLR; radial and DP 2+= bilaterally. NEUROLOGICAL: Awake and alert. No obvious cranial nerve deficits. Motor grossly within normal limits. Five out of 5 muscle strength in the arms and legs. Normal speech. PSYCHIATRIC: Appropriate mood and affect; insight and judgment normal. Data Data Last Documented VS Vital Signs Date Time Temp Pulse Resp B/P Pulse Ox O2 Delivery O2 Flow Rate FiO2 12/26/16 00:32 87 17 137/86 97 Room Air 12/25/16 21:12 98.2 Orders Complete Blood Count With Diff (12/25/16 22:00) Basic Metabolic Panel (Bmp) (12/25/16 22:00) Urinalysis - C+S If Indicated (12/25/16 22:00) Sodium Chlor 0.9% 1000 Ml Inj (Ns 1000 M (12/25/16 22:00) Ketorolac Inj (Toradol Inj) (12/25/16 22:00) ^ Saline Lock (12/25/16 22:00) Drug Screen, Random Urine (12/25/16 22:09) Sodium Chlor 0.9% 1000 Ml Inj (Ns 1000 M (12/25/16 23:15) Ct Lumb Spine W/O Contrast (12/25/16 ) Labs Laboratory Tests Test 12/25/16 12/25/16 22:17 22:20 White Blood Count 10.7 TH/MM3 Red Blood Count 5.33 MIL/MM3 Hemoglobin 16.4 GM/DL Hematocrit 47.6 % Mean Corpuscular Volume 89.4 FL Mean Corpuscular Hemoglobin 30.8 PG Mean Corpuscular Hemoglobin 34.5 % Concent Red Cell Distribution Width 12.2 % Platelet Count 195 TH/MM3 Mean Platelet Volume 8.5 FL Neutrophils (%) (Auto) 61.2 % Lymphocytes (%) (Auto) 30.7 % Monocytes (%) (Auto) 3.2 % Eosinophils (%) (Auto) 3.6 % Basophils (%) (Auto) 1.3 % Neutrophils # (Auto) 6.6 TH/MM3 Lymphocytes # (Auto) 3.3 TH/MM3 Monocytes # (Auto) 0.3 TH/MM3 Eosinophils # (Auto) 0.4 TH/MM3 Basophils # (Auto) 0.1 TH/MM3 CBC Comment DIFF FINAL Differential Comment Sodium Level 140 MEQ/L Potassium Level 3.8 MEQ/L Chloride Level 106 MEQ/L Carbon Dioxide Level 27.4 MEQ/L Anion Gap 7 MEQ/L Blood Urea Nitrogen 16 MG/DL Creatinine 0.77 MG/DL Estimat Glomerular Filtration 115 ML/MIN Rate Random Glucose 275 MG/DL Calcium Level 8.6 MG/DL Urine Color BART Urine Turbidity CLEAR Urine pH 5.5 Urine Specific [place] GREATER THAN 1.035 Urine Protein NEG mg/dL Urine Glucose (UA) 1000 OR GREATER mg/dL Urine Ketones NEG mg/dL Urine Occult Blood NEG Urine Nitrite NEG Urine Bilirubin NEG Urine Leukocyte Esterase NEG Urine RBC 0-2 /hpf Urine WBC 0-2 /hpf Urine Squamous Epithelial 0-5 /hpf Cells Urine Bacteria NONE /hpf Microscopic Urinalysis Comment CULT NOT INDICATED Urine Opiates Screen NEG Urine Barbiturates Screen NEG Urine Amphetamines Screen NEG Urine Benzodiazepines Screen NEG Urine Cocaine Screen NEG Urine Cannabinoids Screen POS MDM Medical Decision Making Medical Screen Exam Complete: Yes Emergency Medical Condition: Yes Medical Record Reviewed: Yes Interpretation(s) Last Impressions Lumbar Spine CT 12/25/16 0000 Signed Impressions: Service Date/Time: Sunday, December 25, 2016 23:08 - CONCLUSION: 1. Small central protrusion slightly eccentric to the right L4-5 without canal stenosis. 2. 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 3. No fracture or subluxation. Jonn Gibbons MD UA: Specific gravity greater than 1.035 was glucosuria Vital Signs Date Time Temp Pulse Resp B/P Pulse Ox O2 Delivery O2 Flow Rate FiO2 12/26/16 00:32 87 17 137/86 97 Room Air 12/25/16 23:36 17 12/25/16 23:00 83 18 148/79 97 Room Air 12/25/16 21:43 99 17 132/95 96 12/25/16 21:12 98.2 104 16 159/83 96 CBC & BMP Diagram 12/25/16 22:17 Differential Diagnosis Low back pain, lumbar disc disease, HNP, hypoglycemia-uncontrolled diabetes/ steroid-induced hyperglycemia; patient without evidence for cord compression, cauda equina syndrome Narrative Course IV access obtained specimens collected and sent for resulting patient administered 1 L normal saline and Toradol 30 mg IV Urinalysis is consistent with dehydration specific gravity greater than 1.035 and glucosuria patient on prednisone most likely reflects elevation in glucose patient is being administered 1 L of normal saline for hydration purposes will reassess glucose subsequently Patient given additional liter of normal saline is noted to have glucosuria and random serum glucose of 275 with normal bicarbonate normal anion gap no ketonuria vital signs are in normal range; glucose reflects nonfasting and steroid therapy and dehydration specific gravity greater than 1.035; patient given additional liter of fluids encouraged to use nonsteroidal anti- inflammatory medications in place of steroid therapy has prescription for muscle relaxant and narcotic. Patient is encouraged to follow-up with primary care provider and orthopedist or neurosurgeon patient has plan to follow-up with her back specialist and has made an appointment. At this point and time patient stay for outpatient management and to continue current regimen discontinuing steroid use. Patient informed of imaging results and stable for outpatient management. Diagnosis Primary Impression: Lumbar disc disease with radiculopathy Additional Impression: Diabetes mellitus with hyperglycemia Referrals: Neurosurgeon call for appointment Primary Care Physician 1 day Patient Instructions: General Instructions Additional Instructions: Discontinue steroid use May use nonsteroidal anti-inflammatory medications such as Advil/Motrin/ ibuprofen 600 mg as often as every 6 hours for pain associated with inflammation Continue muscle relaxant and as stated narcotic use as previously prescribed Use moist heat to low back for comfort purposes Follow-up with primary care provider and neurosurgeon or orthopedist as scheduled Return to the emergency department for any concerns or change in condition Med/Other Pt SpecificInfo: No Change to Meds Disposition: 01 DISCHARGE HOME Condition: Stable Keya Patterson MD Dec 25, 2016 22:29
[2016-12-25 22:30] LABS: AUTOMATED NEUTROPHIL # 6.6 TH/MM3 (1.8-7.7); BASOPHIL # 0.1 TH/MM3 (0-0.2); BASOPHIL % 1.3 % (0.0-2.0); EOSINOPHIL # 0.4 TH/MM3 (0-0.4); EOSINOPHIL % 3.6 % (0.0-4.0); HEMATOCRIT 47.6 % (39.0-51.0); HEMO FLAGS DIFF FINAL; LYMPH % 30.7 % (9.0-44.0); LYMPHOCYTE # 3.3 TH/MM3 (1.0-4.8); MEAN CELL VOLUME 89.4 FL (80.0-100.0); MEAN CORPUSCULAR HEMOGLOBIN 30.8 PG (27.0-34.0); MEAN CORPUSCULAR HGB CONC 34.5 % (32.0-36.0); MONO % 3.2 % (0.0-8.0); NEUT % 61.2 % (16.0-70.0); PLATELET COUNT 195 TH/MM3 (150-450); RED BLOOD COUNT 5.33 MIL/MM3 (4.50-5.90); RED CELL DISTRIBUTION WIDTH 12.2 % (11.6-17.2); WHITE BLOOD COUNT 10.7 TH/MM3 (4.0-11.0)
[2016-12-25 22:34] LABS: GLUCOSE,URINE 1000 OR GREATER mg/dL (NEG)
[2016-12-25 22:35] LABS: RBC, URINE 0-2 /hpf (0-3); URINE COLOR AMBER (YELLW/STRAW); WBC, URINE 0-2 /hpf (0-5)
[2016-12-25 22:36] LABS: BARBITURATES, URINE NEG (NEG); COMMENT (UR) CULT NOT INDICATED; CULTURE IF INDICATED CULT NOT INDICATED; SQUAMOUS EPITHELIAL CELL URINE 0-5 /hpf (0-5)
[2016-12-25 22:37] LABS: COCAINE, URINE NEG (NEG)
[2016-12-25 22:39] LABS: AMPHETAMINE, URINE NEG (NEG)
[2016-12-25 22:47] LABS: BICARBONATE 27.4 MEQ/L (21.0-32.0); POTASSIUM 3.8 MEQ/L (3.5-5.1)
[2016-12-25 23:00] VITALS: BP 148/79; PULSE 83; RESP 18; O2SAT 97
--- NOTE | 2016-12-25 23:46 | RADRPT ---
EXAM DATE/TIME: 12/25/2016 23:08 [facility] COMPARISON: No previous studies available for comparison. INDICATIONS : Chronic back pain. Bent over and felt pain get worse. RADIATION DOSE: 24.15 CTDIvol (mGy) MEDICAL HISTORY : None SURGICAL HISTORY : None. ENCOUNTER: Initial ACUITY: 2 weeks PAIN SCALE: 10/10 LOCATION: [facility] TECHNIQUE: Volumetric scanning of the lumbar spine was performed. Multiplanar reconstructions in the sagittal, coronal and oblique axial planes were performed. Using automated exposure control and adjustment of the mA and/or kV according to patient size, radiation dose was kept as low as reasonably achievable t o obtain optimal diagnostic quality images. DICOM format image data is available electronically for review and comparison. FINDINGS: VERTEBRAE: Normal vertebral body height. ALIGNMENT: No evidence of subluxation. T12-L1: The thecal sac has a normal diameter. No evidence of disc bulge or protrusion. The neural foramina are patent bilaterally. L1-L2: The thecal sac has a normal diameter. No evidence of disc bulge or protrusion. The neural foramina are patent bilaterally. L2-L3: The thecal sac has a normal diameter. No evidence of disc bulge or protrusion. The neural foramina are patent bilaterally. L3-L4: The thecal sac has a normal diameter. No evidence of disc bulge or protrusion. The neural foramina are patent bilaterally. L4-L5: Small central protrusion slightly eccentric to the right abuts the ventral thecal sac. No canal steno sis The neural foramina are patent bilaterally. Nonunion posterior elements. L5-S1: The thecal sac has a normal diameter. No evidence of disc bulge or protrusion. The neural foramina are patent bilaterally. CONCLUSION: 1. Small central protrusion slightly eccentric to the right L4-5 without canal stenosis. 2. 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 3. No fracture or subluxation. Jonn Gibbons MD on December 25, 2016 at 23:40 Board Certified Radiologist. This report was verified electronically.
[2016-12-26 00:32] VITALS: BP 137/86; PULSE 87; RESP 17; O2SAT 97
== END 2016-12-26 01:06 | disposition home or self-care (01) ==
LOC: PHEFT 21:06 → PHED 12-26 01:06
DX: M51.16 Intervertebral disc disorders with radiculopathy, lumbar region (principal); E11.65 Type 2 diabetes mellitus with hyperglycemia; E86.0 Dehydration; I10 Essential (primary) hypertension; E78.00 Pure hypercholesterolemia, unspecified; F17.200 Nicotine dependence, unspecified, uncomplicated; Z79.4 Long term (current) use of insulin; Z87.09 Personal history of other diseases of the respiratory system; Z86.59 Personal history of other mental and behavioral disorders; Z86.79 Personal history of other diseases of the circulatory system; Z87.19 Personal history of other diseases of the digestive system; Z87.39 Personal history of other diseases of the musculoskeletal system and connective tissue; Z87.448 Personal history of other diseases of urinary system; Z86.69 Personal history of other diseases of the nervous system and sense organs
CPT/HCPCS: 72131; 80048; 80307; 81001; 85025; 96361; 96374; 99285; J1885; J7030

== ENCOUNTER 2017-02-04 14:51 | Emergency (ER) | payer OTHER ==
[~2017-02-04] VITALS: Ht 157.5 cm; Wt 69.2 kg
[~2017-02-04 14:51] MED LIST changes: +ALEV220T14 PO; -HYDR-3583 PO; -IBUP-1129 PO; -MOBI7.5T PO; -PRED5TAB PO
[2017-02-04 15:08] VITALS: BP 143/83; PULSE 105; RESP 15; TEMP 98.6; O2SAT 98
[2017-02-04] MEDS ORDERED: PERC5TAB12 PO (16:30)
[2017-02-04] MEDS ORDERED: CYCL5TAB PO (16:30)
[2017-02-04] MEDS ORDERED: PRED50 PO (16:30)
[2017-02-04] MEDS ORDERED: oxyCODONE/ACETAMINOPHEN 5 MG/325 MG TAB PO ONE (16:30)
[2017-02-04] MEDS ORDERED: METHOCARBAMOL 500 MG TAB PO ONE (16:30)
[2017-02-04] MEDS ORDERED: predniSONE 50 MG TAB PO ONE (16:30)
--- NOTE | 2017-02-04 16:30 | PD ---
HPI Chief Complaint: Back/ Neck Pain or Injury Time Seen by Provider: 16:21 Travel History International Travel<30 days: No Contact w/Intl Traveler<30days: No Traveled to known affect area: No History of Present Illness HPI 37-year-old male with chronic low back pain and sciatica here for evaluation of pain. Patient reports right lower back pain that radiates down his right leg consistent with similar episodes of sciatica. He reports bending over about a month ago, and since that time he has had worsening pain. He was seen in the emergency department last month and had a CT of his lumbar spine that showed small central protrusion slightly eccentric to the right L4-L5 without canal stenosis, nonunion posterior elements at L4-L5, no fracture or subluxation. He denies fevers or chills. He denies IVDU. No urinary or bowel incontinence or retention. He states that because of insurance issues his primary care physician is changed and he has not been able to make an appointment. PFSH Past Medical History Hx Anticoagulant Therapy: No Asthma: Yes Autoimmune Disease: No Bipolar Disorder: Yes Anxiety: Yes Depression: Yes Heart Rhythm Problems: No Cancer: No Cardiovascular Problems: Yes (HTN, CHOL) High Cholesterol: Yes Chemotherapy: No Chest Pain: No Congestive Heart Failure: No COPD: Yes Cerebrovascular Accident: No Diabetes: Yes Patient Takes Glucophage: No Diminished Hearing: No Endocrine: Yes Gastrointestinal Disorders: Yes GERD: Yes Genitourinary: Yes Headaches: Yes Hiatal Hernia: No Hypertension: Yes Immune Disorder: No Implanted Vascular Access Dvce: No Musculoskeletal: Yes (DEGENERATIVE DISC DISEASE, CHRONIC BACK PAIN) Neurologic: Yes (NEUROPATHY) Psychiatric: Yes Reproductive: No Respiratory: Yes Immunizations Current: Yes Migraines: Yes Pancreatitis: Yes Pneumonia: Yes Radiation Therapy: No Seizures: Yes Thyroid Disease: No Ulcer: No Past Surgical History Abdominal Surgery: Yes AICD: No Arteriovenous Shunt: No Cholecystectomy: Yes (2011) Hysterectomy: No Insulin Pump: No Joint Replacement: No Oral Surgery: Yes (WISDOM PULLED ) Pacemaker: No Other Surgery: Yes Social History Alcohol Use: No Tobacco Use: Yes (1 PPD) Substance Use: Yes (SMOKES MARIJUANA OCCASSIONAL) Allergies-Medications (Allergen,Severity, Reaction): Coded Allergies: tramadol (Unverified Adverse Reaction, Mild, Anxiety/panic, 02/04/17) PATIENT STATES HE WAS TOLD NOT TO TAKE DUE TO HIS SEIZURE DISORDER Reported Meds & Prescriptions Reported Meds & Active Scripts Active Prednisone 50 Mg Tab 50 Mg PO DAILY 5 Days Flexeril (Cyclobenzaprine HCl) 5 Mg Tab 5 Mg PO TID Percocet (Oxycodone-Acetaminophen) 5-325 mg Tab 1 Tab PO Q6H PRN Reported Aleve Arthritis (Naproxen Sodium) 220 Mg Tab 220 Mg PO BID Novolog Mix 70-30 FlexPen Inj (Insulin Aspart Protam-Asp 70-30 Inj) 300 Unit/3 Ml Pen 1 Units SQ Review of Systems Except as stated in HPI: all other systems reviewed are Neg Physical Exam Narrative GENERAL: Well-developed, well-nourished, no apparent distress. SKIN: Focused skin assessment warm/dry. No rash. HEAD: Atraumatic. Normocephalic. EYES: Pupils equal and round. No scleral icterus. No injection or drainage. ENT: Mucous membranes pink and moist. NECK: Trachea midline. No JVD. CARDIOVASCULAR: Regular rate and rhythm. RESPIRATORY: No accessory muscle use. Clear to auscultation. Breath sounds equal bilaterally. MUSCULOSKELETAL: No obvious deformities. No clubbing. No cyanosis. No edema. Mild midline lower lumbar spine tenderness without step-off. There is moderate right paralumbar spine/right SI joint tenderness. NEUROLOGICAL: Awake and alert. No obvious cranial nerve deficits. Motor grossly within normal limits. Normal speech. Normal range of motion in bilateral legs were normal sensation in bilateral legs. 1+ patellar tendon reflexes bilaterally. Great toe extension present bilaterally. PSYCHIATRIC: Appropriate mood and affect; insight and judgment normal. Data Data Last Documented VS Vital Signs Date Time Temp Pulse Resp B/P Pulse Ox O2 Delivery O2 Flow Rate FiO2 02/04/17 15:08 98.6 105 15 143/83 98 Orders Oxycodone-Acetamin 5-325 Mg (Percocet (02/04/17 16:30) Methocarbamol (Robaxin) (02/04/17 16:30) Prednisone (Deltasone) (02/04/17 16:30) MDM Medical Decision Making Medical Screen Exam Complete: Yes Emergency Medical Condition: Yes Medical Record Reviewed: Yes Differential Diagnosis Chronic low back pain, sciatica, cord compression unlikely Narrative Course Vital signs reviewed and are within normal limits. Briefly this a 37 year old male with chronic low back pain/sciatica, here for worsening lower back pain. He has not been able to make an appointment with his new primary care physician. He does not have any red flags for low back pain. He had a CT of his lumbar spine performed last month that showed small central protrusion slightly eccentric to the right L4-L5 without canal stenosis , no fracture or subluxation. Plan is to start the patient on pain medication, muscle relaxants, and prednisone. PMD follow-up this week. He was informed on when to return to the emergency department. He verbalizes understanding and agreement with plan. Diagnosis Primary Impression: Back pain, chronic Qualified Code: M54.41 - Chronic right-sided low back pain with right-sided sciatica Referrals: Primary Care Physician 3 days Additional Instructions: Follow-up with your primary care physician this week. Take ibuprofen for pain. Return to the emergency department for worsening symptoms or any other concerns. Scripts Prednisone 50 Mg Tab50 Mg PO DAILY 5 Days Ref 0 Prov:Aydin Marion MD 02/04/17 Cyclobenzaprine (Flexeril)5 Mg Tab5 Mg PO TID #15 TAB Ref 0 Prov:Aydin Marion MD 02/04/17 Oxycodone-Acetaminophen (Percocet)5-325 mg Tab1 Tab PO Q6H PRN (PAIN) #12 TAB Ref 0 Prov:Aydin Marion MD 02/04/17 Disposition: 01 DISCHARGE HOME Condition: Stable Aydin Marion MD Feb 04, 2017 16:30
== END 2017-02-04 17:07 | disposition home or self-care (01) ==
LOC: PHED 14:51 → PHEFT 17:07
DX: M54.41 Lumbago with sciatica, right side (principal); F31.9 Bipolar disorder, unspecified; I10 Essential (primary) hypertension; E78.00 Pure hypercholesterolemia, unspecified; J44.9 Chronic obstructive pulmonary disease, unspecified; E11.9 Type 2 diabetes mellitus without complications; K21.9 Gastro-esophageal reflux disease without esophagitis; F17.210 Nicotine dependence, cigarettes, uncomplicated
CPT/HCPCS: 99284; J7512

== ENCOUNTER 2017-02-06 19:11 | Emergency (ER) | payer OTHER ==
[~2017-02-06 19:11] MED LIST changes: +CYCL5TAB PO; +PERC5TAB12 PO; +PRED50 PO
[2017-02-06 19:22] VITALS: BP 140/92; PULSE 119; RESP 22; TEMP 98.5; O2SAT 98
== END 2017-02-06 20:45 | disposition left against medical advice (07) ==
LOC: PHED 19:11
DX: M54.9 Dorsalgia, unspecified (principal)
CPT/HCPCS: 99281

== ENCOUNTER 2017-02-10 12:35 | Emergency (ER) | payer OTHER ==
[~2017-02-10] VITALS: Ht 170.2 cm; Wt 68.0 kg
[2017-02-10 12:50] VITALS: BP 185/114; PULSE 114; RESP 16; TEMP 98.6; O2SAT 97
== END 2017-02-10 14:17 | disposition left against medical advice (07) ==
LOC: PHED 12:35
DX: Z03.89 Encounter for observation for other suspected diseases and conditions ruled out (principal)
CPT/HCPCS: 99281

== ENCOUNTER 2017-05-07 15:47 | Emergency (ER) | payer OTHER ==
[~2017-05-07] VITALS: Ht 170.2 cm; Wt 66.0 kg
[2017-05-07 16:00] VITALS: BP 151/93; PULSE 122; RESP 18; TEMP 98.1; O2SAT 99
[2017-05-07] MEDS ORDERED: SODIUM CHLOR 0.9% 1000 ML INJ 1,000 ML IV SCH (16:09)
[2017-05-07] MEDS ORDERED: ONDANSETRON HCL 4 MG/2 ML VIAL IVP ONE (16:15)
[2017-05-07] MEDS ORDERED: KETOROLAC TROMETHAMINE 30 MG/ML (IVP) VIAL IVP ONE (16:15)
[2017-05-07] MEDS ORDERED: SODIUM CHLORIDE 0.9% FLUSH 10 ML FLUSH IV FLUSH PRN (16:15)
--- NOTE | 2017-05-07 16:21 | PD ---
HPI Chief Complaint: Abdominal Pain Time Seen by Provider: 16:02 Travel History International Travel<30 days: No Contact w/Intl Traveler<30days: No Traveled to known affect area: No History of Present Illness HPI This is a 37-year-old male who has a history of recurrent pancreatitis who presents to the emergency department with 4 days of left upper quadrant abdominal pain that radiates to the back, constant, moderate severity, associated with some nausea but no vomiting. This feels similar to when he said pancreatitis in the past. PFSH Past Medical History Hx Anticoagulant Therapy: No Asthma: Yes Autoimmune Disease: No Bipolar Disorder: Yes Anxiety: Yes Depression: Yes Heart Rhythm Problems: No Cancer: No Cardiovascular Problems: Yes (HTN, CHOL) High Cholesterol: Yes Chemotherapy: No Chest Pain: No Congestive Heart Failure: No COPD: Yes Cerebrovascular Accident: No Diabetes: Yes Patient Takes Glucophage: No Diminished Hearing: No Endocrine: Yes Gastrointestinal Disorders: Yes GERD: Yes Genitourinary: Yes Headaches: Yes Hiatal Hernia: No Hypertension: Yes Immune Disorder: No Implanted Vascular Access Dvce: No Musculoskeletal: Yes (DEGENERATIVE DISC DISEASE, CHRONIC BACK PAIN) Neurologic: Yes (NEUROPATHY) Psychiatric: Yes Reproductive: No Respiratory: Yes Immunizations Current: Yes Migraines: Yes Pancreatitis: Yes Pneumonia: Yes Radiation Therapy: No Seizures: Yes Thyroid Disease: No Ulcer: No Influenza Vaccination: No ?: Not Past Surgical History Abdominal Surgery: Yes AICD: No Arteriovenous Shunt: No Cholecystectomy: Yes (2011) Hysterectomy: No Insulin Pump: No Joint Replacement: No Oral Surgery: Yes (WISDOM PULLED ) Pacemaker: No Other Surgery: Yes Social History Alcohol Use: No Tobacco Use: Yes (1 PPD) Substance Use: Yes (SMOKES MARIJUANA OCCASSIONAL) Allergies-Medications (Allergen,Severity, Reaction): Coded Allergies: tramadol (Unverified Adverse Reaction, Mild, Anxiety/panic, 05/07/17) PATIENT STATES HE WAS TOLD NOT TO TAKE DUE TO HIS SEIZURE DISORDER Reported Meds & Prescriptions Reported Meds & Active Scripts Active No Active Prescriptions or Reported Medications Review of Systems Except as stated in HPI: all other systems reviewed are Neg Physical Exam Narrative GENERAL:Well appearing, no acute distress SKIN: Focused skin assessment warm and dry. HEAD: Atraumatic. Normocephalic. EYES: Pupils equal and round. No injection or drainage. ENT: Moist mucous membranes NECK: Trachea midline. CARDIOVASCULAR: Regular rate and rhythm. No murmur appreciated. RESPIRATORY: Clear to auscultation. Breath sounds equal bilaterally. GASTROINTESTINAL: Abdomen soft, tender to palpation in the left upper quadrant with no rebound or guarding. MUSCULOSKELETAL: No obvious deformities. NEUROLOGICAL: Awake and alert. No obvious cranial nerve deficits. Moving all extremities. PSYCHIATRIC: Appropriate mood and affect; insight and judgment normal. Data Data Last Documented VS Vital Signs Date Time Temp Pulse Resp B/P (MAP) Pulse Ox O2 Delivery O2 Flow Rate FiO2 05/07/17 17:59 98 18 116/75 (89) 98 Room Air 05/07/17 16:00 98.1 Orders Orders Complete Blood Count With Diff (05/07/17 16:09) Comprehensive Metabolic Panel (05/07/17 16:09) Lipase (05/07/17 16:09) Urinalysis - C+S If Indicated (05/07/17 16:09) Iv Access Insert/Monitor (05/07/17 16:09) Ecg Monitoring (05/07/17 16:09) Oximetry (05/07/17 16:09) Ondansetron Inj (Zofran Inj) (05/07/17 16:15) Sodium Chlor 0.9% 1000 Ml Inj (Ns 1000 M (05/07/17 16:09) Sodium Chloride 0.9% Flush (Ns Flush) (05/07/17 16:15) Ketorolac Inj (Toradol Inj) (05/07/17 16:15) Insulin Human Regular Inj (Novolin R Inj (05/07/17 17:00) Sodium Chlor 0.9% 1000 Ml Inj (Ns 1000 M (05/07/17 17:00) Labs Laboratory Tests Test 05/07/17 16:18 05/07/17 17:15 White Blood Count 9.6 TH/MM3 Red Blood Count 5.93 MIL/MM3 Hemoglobin 18.3 GM/DL Hematocrit 52.6 % Mean Corpuscular Volume 88.7 FL Mean Corpuscular Hemoglobin 30.8 PG Mean Corpuscular Hemoglobin Concent 34.7 % Red Cell Distribution Width 11.6 % Platelet Count 236 TH/MM3 Mean Platelet Volume 9.4 FL Neutrophils (%) (Auto) 67.4 % Lymphocytes (%) (Auto) 26.5 % Monocytes (%) (Auto) 2.4 % Eosinophils (%) (Auto) 3.1 % Basophils (%) (Auto) 0.6 % Neutrophils # (Auto) 6.5 TH/MM3 Lymphocytes # (Auto) 2.5 TH/MM3 Monocytes # (Auto) 0.2 TH/MM3 Eosinophils # (Auto) 0.3 TH/MM3 Basophils # (Auto) 0.1 TH/MM3 CBC Comment DIFF FINAL Differential Comment Blood Urea Nitrogen 16 MG/DL Creatinine 0.95 MG/DL Random Glucose 415 MG/DL Total Protein 7.7 GM/DL Albumin 4.2 GM/DL Calcium Level 9.7 MG/DL Alkaline Phosphatase 144 U/L Aspartate Amino Transf (AST/SGOT) 5 U/L Alanine Aminotransferase (ALT/SGPT) 32 U/L Total Bilirubin 0.6 MG/DL Sodium Level 134 MEQ/L Potassium Level 4.3 MEQ/L Chloride Level 99 MEQ/L Carbon Dioxide Level 24.1 MEQ/L Anion Gap 11 MEQ/L Estimat Glomerular Filtration Rate 90 ML/MIN Lipase 91 U/L Urine pH 5.5 Urine Protein NEG mg/dL Urine Glucose (UA) 1000 OR GREATER mg/dL Urine Ketones NEG mg/dL Urine Occult Blood NEG Urine Nitrite NEG Urine Bilirubin NEG Urine Leukocyte Esterase NEG MDM Medical Decision Making Medical Screen Exam Complete: Yes Emergency Medical Condition: Yes Interpretation(s) Afebrile, tachycardic Hemoconcentration Hyperglycemia Lipase is normal Urinalysis demonstrates glucosuria Differential Diagnosis Hyperglycemia, pancreatitis, gastritis, gastroenteritis, diabetic gastroparesis Narrative Course This is a 37-year-old male who presents to the emergency department with abdominal discomfort,. He reports this feels similar to when he said pancreatitis in the past. He is noncompliant with his diabetes medications. He has a history of chronic opiate dependence. He was placed on a monitor and an IV was established. Labs are obtained which demonstrate hyperglycemia and a normal lipase. I don't suspect an acute abdominal etiology of his symptoms. He was given 2 L of IV fluid, IV insulin and his glucose improved. Patient will be discharged home and was given a referral to [facility]. Diagnosis Primary Impression: Hyperglycemia Referrals: [facility] Patient Instructions: General Instructions Additional Instructions: If you develop severe or worsening abdominal pain, fever>100.4, persistent vomiting or inability to eat or drink return to the emergency department immediately. Follow up with your primary care physician in 1-2 days for a check-up. Med/Other Pt SpecificInfo: No Change to Meds Scripts No Active Prescriptions or Reported Meds Disposition: 01 DISCHARGE HOME Condition: Stable Kalyani Cruz MD May 07, 2017 16:21
[2017-05-07 16:22] LABS: AUTOMATED NEUTROPHIL # 6.5 TH/MM3 (1.8-7.7); BASOPHIL # 0.1 TH/MM3 (0-0.2); BASOPHIL % 0.6 % (0.0-2.0); EOSINOPHIL # 0.3 TH/MM3 (0-0.4); EOSINOPHIL % 3.1 % (0.0-4.0); HEMATOCRIT 52.6 % (39.0-51.0); HEMO FLAGS DIFF FINAL; LYMPH % 26.5 % (9.0-44.0); LYMPHOCYTE # 2.5 TH/MM3 (1.0-4.8); MEAN CELL VOLUME 88.7 FL (80.0-100.0); MEAN CORPUSCULAR HEMOGLOBIN 30.8 PG (27.0-34.0); MEAN CORPUSCULAR HGB CONC 34.7 % (32.0-36.0); MONO % 2.4 % (0.0-8.0); NEUT % 67.4 % (16.0-70.0); PLATELET COUNT 236 TH/MM3 (150-450); RED BLOOD COUNT 5.93 MIL/MM3 (4.50-5.90); RED CELL DISTRIBUTION WIDTH 11.6 % (11.6-17.2); WHITE BLOOD COUNT 9.6 TH/MM3 (4.0-11.0)
[2017-05-07 16:25] VITALS: BP 135/83; PULSE 110; RESP 18; O2SAT 96
[2017-05-07 16:31] LABS: CHLORIDE 99 MEQ/L (98-107); POTASSIUM 4.3 MEQ/L (3.5-5.1); SODIUM (NA) 134 MEQ/L (136-145)
[2017-05-07 16:36] LABS: ANION GAP 11 MEQ/L (5-15); BICARBONATE 24.1 MEQ/L (21.0-32.0)
[2017-05-07 16:54] LABS: ALKALINE PHOSPHATASE 144 U/L (45-117); ALT (GPT) 32 U/L (12-78); AST (GOT) 5 U/L (15-37); BLOOD UREA NITROGEN 16 MG/DL (7-18); GLOMERULAR FILTRATION RATE 90 ML/MIN (>89); TOTAL BILIRUBIN ADULT 0.6 MG/DL (0.2-1.0)
[2017-05-07] MEDS ORDERED: SODIUM CHLOR 0.9% 1000 ML INJ 1,000 ML IV ONE (17:00)
[2017-05-07] MEDS ORDERED: INSULIN HUMAN REGULAR 1,000 UNITS/10 ML VIAL IV PUSH ONE (17:00)
[2017-05-07 17:44] LABS: BLOOD, URINE NEG (NEG); GLUCOSE,URINE 1000 OR GREATER mg/dL (NEG); KETONE, URINE NEG (NEG); NITRITE,URINE NEG (NEG); PH, URINE 5.5 (5.0-8.5)
[2017-05-07 17:59] VITALS: BP 116/75; PULSE 98; RESP 18; O2SAT 98
[2017-05-07 18:03] LABS: URINE COLOR YELLOW (YELLW/STRAW)
[2017-05-07 18:04] LABS: COMMENT (UR) CULT NOT INDICATED; CULTURE IF INDICATED CULT NOT INDICATED; SQUAMOUS EPITHELIAL CELL URINE 0-5 /hpf (0-5); WBC, URINE 0-2 /hpf (0-5)
== END 2017-05-07 18:22 | disposition home or self-care (01) ==
LOC: PHED 15:47
DX: E11.65 Type 2 diabetes mellitus with hyperglycemia (principal); F17.210 Nicotine dependence, cigarettes, uncomplicated
CPT/HCPCS: 80053; 81001; 83690; 85025; 96361; 96374; 96375; 99285; J1815; J1885; J2405; J7030

== ENCOUNTER 2017-07-10 22:44 | Emergency (ER) | payer SELFPAY ==
[~2017-07-10] VITALS: Ht 152.4 cm; Wt 69.8 kg
[2017-07-10 22:47] VITALS: BP 152/84; PULSE 127; RESP 20; TEMP 98.4; O2SAT 96
[2017-07-10] MEDS ORDERED: CIPR-9 PO (23:20)
[2017-07-10] MEDS ORDERED: NAPR375T4 PO (23:20)
--- NOTE | 2017-07-10 23:28 | PD ---
HPI Chief Complaint: Complaint Time Seen by Provider: 23:12 Travel History International Travel<30 days: No Contact w/Intl Traveler<30days: No Traveled to known affect area: No History of Present Illness HPI Patient has 6 day duration of pain with urination, no urethral discharge, no evidence of any discoloration to the urine, denies any mal odor to the urine, not improving with any Azo use. Patient is also complaining of pain with ejaculation as well. Patient rates the pain as a 6 to a 7 out of 10, an also has pain as he describes it (behind his testicles) patient denies any alleviating or aggravating factors. Patient denies any associated factors such as fever, chest pain, headache, abdominal pain, back pain. Allergy to tramadol (apparently patient develops seizures to it) Past medical history significant for seizures, hypertension, hypercholesterol, PFSH Past Medical History Hx Anticoagulant Therapy: No Asthma: Yes Autoimmune Disease: No Bipolar Disorder: Yes Anxiety: Yes Depression: Yes Heart Rhythm Problems: No Cancer: No Cardiovascular Problems: Yes (HTN, CHOL) High Cholesterol: Yes Chemotherapy: No Chest Pain: No Congestive Heart Failure: No COPD: Yes Cerebrovascular Accident: No Diabetes: Yes Patient Takes Glucophage: No Diminished Hearing: No Endocrine: Yes Gastrointestinal Disorders: Yes GERD: Yes Genitourinary: Yes Headaches: Yes Hiatal Hernia: No Hypertension: Yes Immune Disorder: No Implanted Vascular Access Dvce: No Musculoskeletal: Yes (DEGENERATIVE DISC DISEASE, CHRONIC BACK PAIN) Neurologic: Yes (NEUROPATHY) Psychiatric: Yes Reproductive: No Respiratory: Yes Immunizations Current: Yes Migraines: Yes Pancreatitis: Yes Pneumonia: Yes Radiation Therapy: No Seizures: Yes Thyroid Disease: No Ulcer: No Tetanus Vaccination: > 5 Years ?: Not Past Surgical History Abdominal Surgery: Yes AICD: No Arteriovenous Shunt: No Cholecystectomy: Yes (2011) Hysterectomy: No Insulin Pump: No Joint Replacement: No Oral Surgery: Yes (WISDOM PULLED ) Pacemaker: No Other Surgery: Yes Social History Alcohol Use: No Tobacco Use: Yes (1 PPD) Substance Use: Yes (SMOKES MARIJUANA OCCASSIONAL) Allergies-Medications (Allergen,Severity, Reaction): Coded Allergies: tramadol (Unverified Adverse Reaction, Mild, Anxiety/panic, 07/10/17) PATIENT STATES HE WAS TOLD NOT TO TAKE DUE TO HIS SEIZURE DISORDER Reported Meds & Prescriptions Reported Meds & Active Scripts Active No Active Prescriptions or Reported Medications Review of Systems Except as stated in HPI: all other systems reviewed are Neg General / Constitutional: No: Fever Eyes: No: Visual changes HENT: No: Headaches Cardiovascular: No: Chest Pain or Discomfort Respiratory: No: Shortness of Breath Gastrointestinal: No: Abdominal Pain Genitourinary: Positive: Dysuria, Dyspareunia Musculoskeletal: No: Pain Skin: No Rash Neurologic: No: Weakness Psychiatric: No: Depression Endocrine: No: Polydipsia Hematologic/Lymphatic: No: Easy Bruising Physical Exam Narrative GENERAL: SKIN: Warm and dry. HEAD: Atraumatic. Normocephalic. EYES: Pupils equal and round. No scleral icterus. No injection or drainage. ENT: No nasal bleeding or discharge. Mucous membranes pink and moist. NECK: Trachea midline. No JVD. CARDIOVASCULAR: Regular rate and rhythm. RESPIRATORY: No accessory muscle use. Clear to auscultation. Breath sounds equal bilaterally. GASTROINTESTINAL: Abdomen soft, non-tender, nondistended....no urethral d/c at meatus, normal testicular lie, no conti clapper deformity, present cremasteric reflex, no testicular ttp, however ttp over epididimal region on right...on rectal exam enlarged boggy and ttp on protate. MUSCULOSKELETAL: Extremities without clubbing, cyanosis, or edema. No obvious deformities. NEUROLOGICAL: Awake and alert. No obvious cranial nerve deficits. Motor grossly within normal limits. Five out of 5 muscle strength in the arms and legs. Normal speech. PSYCHIATRIC: Appropriate mood and affect; insight and judgment normal. Data Data Last Documented VS Vital Signs Date Time Temp Pulse Resp B/P (MAP) Pulse Ox O2 Delivery O2 Flow Rate FiO2 07/10/17 22:47 98.4 127 20 152/84 (106) 96 Orders Orders Urinalysis - C+S If Indicated (07/10/17 23:17) Ketorolac Inj (Toradol Inj) (07/10/17 23:30) Ceftriaxone Inj (Rocephin Inj) (07/10/17 23:30) MDM Medical Decision Making Medical Screen Exam Complete: Yes Emergency Medical Condition: Yes Medical Record Reviewed: Yes Differential Diagnosis uti v epididimytis v prostatitis Narrative Course clincally c/w prostatitis and epidimytis, will start on abx and pain medication im in ER then d/c on 14 day abx course Diagnosis Primary Impression: Epididymitis Patient Instructions: Epididymo-Orchitis (ED), General Instructions Scripts Naproxen DR (Naproxen EC) 375 Mg Tabdr 375 MG PO BID, #30 TAB 0 Refills Prov: Mulugeta Trujillo MD 07/10/17 Ciprofloxacin (Cipro) 500 Mg Tab 500 MG PO BID for Infection for 14 Days, #28 TAB 0 Refills Prov: Mulugeta Trujillo MD 07/10/17 Disposition: 01 DISCHARGE HOME Condition: Stable Mulugeta Trujillo MD Jul 10, 2017 23:28
[2017-07-10] MEDS ORDERED: cefTRIAXone 250 MG VIAL IM ONE (23:30)
[2017-07-10] MEDS ORDERED: KETOROLAC TROMETHAMINE 30 MG/ML (IVP) VIAL IM ONE (23:30)
[2017-07-10 23:56] VITALS: BP 145/88; TEMP 98.5
== END 2017-07-10 23:57 | disposition home or self-care (01) ==
LOC: PHED 22:44
DX: N45.1 Epididymitis (principal); F12.90 Cannabis use, unspecified, uncomplicated; F17.210 Nicotine dependence, cigarettes, uncomplicated
CPT/HCPCS: 96372; 99284; J0696; J1885

== ENCOUNTER 2017-08-21 01:24 | Emergency (ER) | payer SELFPAY ==
[~2017-08-21] VITALS: Ht 170.2 cm; Wt 70.5 kg
[~2017-08-21 01:24] MED LIST changes: -ALEV220T14 PO; +CIPR-9 PO; -CYCL5TAB PO; +NAPR375T4 PO; -NOVOINJ2 SQ; -PERC5TAB12 PO; -PRED50 PO
[2017-08-21] MEDS ORDERED: NOVONP2 SQ (01:31)
[2017-08-21 01:34] VITALS: BP 135/85; PULSE 125; RESP 17; TEMP 98.6; O2SAT 97
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
[2017-08-21 03:51] VITALS: BP 148/77
== END 2017-08-21 03:58 | disposition home or self-care (01) ==
LOC: PHED 01:24
DX: S70.12XA Contusion of left thigh, initial encounter (principal); J45.909 Unspecified asthma, uncomplicated; F31.9 Bipolar disorder, unspecified; I10 Essential (primary) hypertension; E78.00 Pure hypercholesterolemia, unspecified; J44.9 Chronic obstructive pulmonary disease, unspecified; E11.9 Type 2 diabetes mellitus without complications; F17.210 Nicotine dependence, cigarettes, uncomplicated; Y04.2XXA Assault by strike against or bumped into by another person, initial encounter
CPT/HCPCS: 73502; 99283